=== PATIENT | female | born 1965 | race Caucasian/White ===

== ENCOUNTER 2021-12-27 15:50 | Inpatient (IN) | payer BC, MEDICARE ==
[~2021-12-27] VITALS: Ht 165.1 cm; Wt 68.5 kg
[2021-12-27] MEDS ORDERED: SODIUM CHLORIDE 0.9% 500 ML IVB ONE (16:00)
[2021-12-27 17:04] LABS: Basophils # (auto) 0 10 ^3/uL (0-0.2); Basophils % (auto) 0.4 % (0.0-2.0); Eosinophils # (auto) 0 10 ^3/uL (0-0.8); Eosinophils % (auto) 0.1 % (0.0-7.0); Hematocrit 43.6 % (36.0-46.0); Lymphocytes # (auto) 0.4 10 ^3/uL (0.4-5.4); Lymphocytes % (auto) 3.3 % (10.0-50.0); Mean Corpuscular Hemoglobin 31.6 pg (28.0-32.0); Mean Corpuscular Hgb Conc. 34.3 g/dL (32.0-36.0); Monocytes # (auto) 0.7 10 ^3/uL (0-1.3); Monocytes % (auto) 6.3 % (0.0-12.0); Neutrophils # (auto) 10.1 10 ^3/uL (1.6-8.6); Neutrophils % (auto) 89.9 % (37.0-80.0); Nucleated Red Blood Cells % 0.3 %; Red Blood Cells 4.74 10^6/uL (4.0-5.20); Red Cell Distribution Width 14.6 % (11.8-14.3); White Blood Cell 11.2 10^3/uL (4.4-10.8)
[2021-12-27 17:22] LABS: Albumin 3.9 g/dL (3.4-5.0); Anion Gap 8 (5-15); Blood Alcohol < 3.0 mg/dL (0-5); Blood Urea Nitrogen 22 mg/dL (7-18); Calcium 9.6 mg/dL (8.5-10.1); Carbon Dioxide 24 mmol/L (21-32); Chloride 109 mmol/L (98-107); Glucose 127 mg/dL (74-106); Magnesium 1.9 mg/dL (1.6-2.6); Potassium 3.2 mmol/L (3.5-5.1); Salicylate 2.6 mg/dL (2.8-20.0); Sodium 141 mmol/L (136-145)
[2021-12-27 17:24] LABS: Lactic Acid w/Reflex 3.3 mmol/L (0.4-2.0)
[2021-12-27 17:27] LABS: Alanine Aminotransferase 19 U/L (13-56); Alkaline Phosphatase 89 U/L (45-117); Aspartate Aminotransferase 17 U/L (15-37); Bilirubin, Total 0.9 mg/dL (0.2-1.0); GFR African American 69 mL/min; GFR Non-African American 57 mL/min; Total Protein 7.4 g/dL (6.4-8.2)
[2021-12-27 17:29] LABS: Acetaminophen < 10.0 ug/mL (10-30)
[2021-12-27] MEDS ORDERED: hydrALAZINE HCL 20 MG/ML VL IV ONE (18:45)
[2021-12-27] MEDS ORDERED: AZITHROMYCIN 500MG/ 250ML 250 ML IV ONE (19:30)
[2021-12-27] MEDS ORDERED: cefTRIAXone 1GM/50ML D5W 50 ML IV ONE (19:30)
[2021-12-27] MEDS ORDERED: SODIUM CHLORIDE 0.9% 2,000 ML IV ONE (19:30)
[2021-12-27] MEDS ORDERED: ONDANSETRON HCL 4 MG/2 ML VIAL IV ONE (20:30)
[2021-12-27] MEDS ORDERED: MORPHINE SULFATE INJ 2 MG/ml SYRG IV ONE (20:30)
[2021-12-27 21:15] LABS: Urine Bacteria NONE SEEN /hpf (None Seen); Urine Blood Negative /uL (Negative); Urine Mucus FEW (None Seen); Urine Specific Gravity 1.021 (1.001-1.035); Urine WBC 2 /hpf (0 - 5)
[2021-12-27] MEDS ORDERED: NITROGLYCERIN 0.4 MG SL TAB SL PRN (21:15)
[2021-12-27] MEDS ORDERED: ONDANSETRON HCL 4 MG/2 ML VIAL IV PRN (21:15)
[2021-12-27] MEDS: SOD CHL 0.9%/ KCL 20MEQ 1,000 ML IV SCH (21:15)
[2021-12-27] MEDS ORDERED: MORPHINE SULFATE INJ 2 MG/ml SYRG IV PRN (21:15)
[2021-12-27 21:32] LABS: Alcohol, Urine < 3.0 mg/dL (0-10); Amphetamine Screen, Urine NEGATIVE (NEGATIVE); Barbiturate Scree,Urine NEGATIVE (NEGATIVE); Benzodiazephine Screen, Urine NEGATIVE (NEGATIVE); Cannabinoid Screen, Urine POSITIVE (NEGATIVE); Cocaine Screen, Urine NEGATIVE (NEGATIVE); Opiate Scree,Urine NEGATIVE (NEGATIVE); Phencyclidine Screen, Urine NEGATIVE (NEGATIVE)
[2021-12-27] MEDS ORDERED: dilTIAZem 25 MG/5 ML VIAL IV ONE (21:45)
[2021-12-27] MEDS: ACETAMINOPHEN 325 MG TAB PO PRN (23:42)
[2021-12-28] MEDS ORDERED: dilTIAZem 25 MG/5 ML VIAL IV ONE (01:15)
[2021-12-28 05:22] LABS: Basophils # (auto) 0.1 10 ^3/uL (0-0.2); Basophils % (auto) 0.4 % (0.0-2.0); Eosinophils # (auto) 0 10 ^3/uL (0-0.8); Hematocrit 40.9 % (36.0-46.0); Hemoglobin 14.4 g/dL (12.2-16.2); Lymphocytes # (auto) 0.7 10 ^3/uL (0.4-5.4); Mean Corpuscular Hemoglobin 32.2 pg (28.0-32.0); Mean Corpuscular Hgb Conc. 35.3 g/dL (32.0-36.0); Mean Corpuscular Volume 91.3 fL (80.0-100.0); Monocytes # (auto) 0.9 10 ^3/uL (0-1.3); Monocytes % (auto) 4.7 % (0.0-12.0); Neutrophils # (auto) 16.5 10 ^3/uL (1.6-8.6); Neutrophils % (auto) 90.9 % (37.0-80.0); Nucleated Red Blood Cells % 0.1 %; Red Blood Cells 4.48 10^6/uL (4.0-5.20); Red Cell Distribution Width 15.1 % (11.8-14.3); White Blood Cell 18.1 10^3/uL (4.4-10.8)
[2021-12-28] MEDS ORDERED: LABETALOL HCL 5 MG/ML 4ML SYRINGE IV ONE (05:30)
[2021-12-28 05:37] LABS: Potassium 3.6 mmol/L (3.5-5.1)
[2021-12-28 05:51] LABS: Albumin 3.8 g/dL (3.4-5.0); Bilirubin, Total 0.9 mg/dL (0.2-1.0); Calcium 9.5 mg/dL (8.5-10.1); Total Protein 7.2 g/dL (6.4-8.2)
[2021-12-28] MEDS ORDERED: VANCOMYCIN PER PHARMACY 0 MG IV SCH (06:00)
[2021-12-28] MEDS ORDERED: VANCOMYCIN 1GM/250ML 250 ML IV ONE (06:15)
[2021-12-28] MEDS ORDERED: cefTRIAXone 1GM/50ML D5W 50 ML IV SCH (09:00)
[2021-12-28] MEDS ORDERED: hydrALAZINE HCL 20 MG/ML VL IV ONE (09:15)
[2021-12-28] MEDS: ENOXAPARIN SOD 40 MG/0.4 ML SYRINGE SC SCH ×2 (10:00→10:55)
[2021-12-28] MEDS: PANTOPRAZOLE 40 MG TAB PO SCH (10:55)
[2021-12-28] MEDS: SOD CHL 0.9%/ KCL 20MEQ 1,000 ML IV SCH (10:55)
[2021-12-28] MEDS ORDERED: HYDROcodone-ACET 5/325MG TAB PO ONE (11:45)
[2021-12-28] MEDS ORDERED: HCTZ 25 MG TAB PO ONE (11:45)
[2021-12-28] MEDS ORDERED: cefTRIAXone 1GM/50ML D5W 50 ML IV ONE (15:00)
[2021-12-28] MEDS ORDERED: NIFEdipine ER 30 MG TAB PO ONE (15:00)
[2021-12-28] MEDS ORDERED: METOPROLOL TARTRATE 1MG/1ML-5ML VIAL IV PRN (15:00)
[2021-12-28] MEDS ORDERED: LABETALOL HCL 5 MG/ML 4ML SYRINGE IV PRN (15:15)
[2021-12-28] MEDS: ACETAMINOPHEN 325 MG TAB PO PRN (17:52)
[2021-12-28] MEDS: VANCOMYCIN 1GM/250ML 250 ML IV SCH (20:09)
[2021-12-28] MEDS: SODIUM CHLORIDE 0.9% 1,000 ML IV SCH (23:25)
[2021-12-28] MEDS: AZITHROMYCIN 500MG/ 250ML 250 ML IV SCH (23:26)
[2021-12-28] MEDS: METOPROLOL TARTRATE 50 MG TAB PO SCH (23:26)
[2021-12-28] MEDS: METOCLOPRAMIDE HCL 10 MG TAB PO SCH (23:27)
[2021-12-28] MEDS: HYDROcodone-ACET 5/325MG TAB PO PRN (23:28)
[2021-12-28] MEDS: DexAMETHasone INJECTION 10 MG in D5W 5% 50 ML IV SCH (23:30)
[2021-12-29] MEDS: SODIUM CHLORIDE 0.9% 1,000 ML IV SCH ×2 (03:15→13:45)
[2021-12-29 04:34] LABS: Basophils # (auto) 0.1 10 ^3/uL (0-0.2); Basophils % (auto) 0.4 % (0.0-2.0); Eosinophils # (auto) 0 10 ^3/uL (0-0.8); Eosinophils % (auto) 0.1 % (0.0-7.0); Hematocrit 41.9 % (36.0-46.0); Hemoglobin 14.1 g/dL (12.2-16.2); Lymphocytes % (auto) 6.6 % (10.0-50.0); Mean Corpuscular Hemoglobin 30.8 pg (28.0-32.0); Mean Corpuscular Hgb Conc. 33.5 g/dL (32.0-36.0); Mean Corpuscular Volume 91.8 fL (80.0-100.0); Monocytes # (auto) 0.7 10 ^3/uL (0-1.3); Neutrophils # (auto) 13.2 10 ^3/uL (1.6-8.6); Neutrophils % (auto) 87.9 % (37.0-80.0); Red Blood Cells 4.57 10^6/uL (4.0-5.20); Red Cell Distribution Width 15.1 % (11.8-14.3)
[2021-12-29 04:53] LABS: Calcium 9.6 mg/dL (8.5-10.1); Magnesium 1.8 mg/dL (1.6-2.6)
[2021-12-29 04:59] LABS: Albumin 3.4 g/dL (3.4-5.0); BUN/Creatinine Ratio 14.9; Bilirubin, Total 0.5 mg/dL (0.2-1.0); Total Protein 7.4 g/dL (6.4-8.2)
[2021-12-29 05:00] VITALS: BP 147/95
[2021-12-29] MEDS: METOCLOPRAMIDE HCL 10 MG TAB PO SCH ×3 (06:25→21:23)
[2021-12-29] MEDS: ACETAMINOPHEN 325 MG TAB PO PRN ×2 (06:26→14:36)
[2021-12-29 08:00] VITALS: BP 144/90
[2021-12-29] MEDS: HYDROcodone-ACET 5/325MG TAB PO PRN ×3 (08:11→21:22)
[2021-12-29 09:00] VITALS: BP 144/90
[2021-12-29] MEDS: VANCOMYCIN 1GM/250ML 250 ML IV SCH (09:20)
[2021-12-29] MEDS: cefTRIAXone 1GM/50ML D5W 50 ML IV SCH (09:20)
[2021-12-29] MEDS: METOPROLOL TARTRATE 50 MG TAB PO SCH ×2 (09:21→21:23)
[2021-12-29] MEDS: HCTZ 25 MG TAB PO SCH (09:21)
[2021-12-29] MEDS: PANTOPRAZOLE 40 MG TAB PO SCH (09:21)
[2021-12-29] MEDS: NIFEdipine ER 30 MG TAB PO SCH (09:22)
[2021-12-29] MEDS: ENOXAPARIN SOD 40 MG/0.4 ML SYRINGE SC SCH (09:22)
[2021-12-29] MEDS: DexAMETHasone INJECTION 10 MG in D5W 5% 50 ML IV SCH (09:25)
[2021-12-29 13:00] VITALS: BP 143/91
[2021-12-29] MEDS ORDERED: THIAMINE HCL 100 MG TAB PO ONE (13:45)
[2021-12-29] MEDS ORDERED: MAGNESIUM SULFATE 1GM/100ML 100 ML IV ONE (13:45)
[2021-12-29] MEDS ORDERED: POTASSIUM EFFERVESENT TAB 25 MEQ PO ONE (13:45)
[2021-12-29] MEDS ORDERED: OXY5T GT (16:26)
[2021-12-29 17:00] VITALS: BP 137/67
[2021-12-29] MEDS: AZITHROMYCIN 500MG/ 250ML 250 ML IV SCH (21:23)
[2021-12-29 22:00] VITALS: BP 130/84
[2021-12-30] VITALS (7 sets, daily range): BP systolic 131–155; BP diastolic 46–96
[2021-12-30] MEDS: SODIUM CHLORIDE 0.9% 1,000 ML IV SCH ×3 (00:21→14:15)
[2021-12-30 05:53] LABS: Basophils # (auto) 0 10 ^3/uL (0-0.2); Basophils % (auto) 0.1 % (0.0-2.0); Eosinophils # (auto) 0 10 ^3/uL (0-0.8); Hematocrit 41.2 % (36.0-46.0); Hemoglobin 13.8 g/dL (12.2-16.2); Lymphocytes # (auto) 0.8 10 ^3/uL (0.4-5.4); Lymphocytes % (auto) 9.9 % (10.0-50.0); Mean Corpuscular Hemoglobin 31.1 pg (28.0-32.0); Mean Corpuscular Hgb Conc. 33.6 g/dL (32.0-36.0); Mean Corpuscular Volume 92.8 fL (80.0-100.0); Monocytes # (auto) 0.5 10 ^3/uL (0-1.3); Monocytes % (auto) 6.2 % (0.0-12.0); Neutrophils # (auto) 7.1 10 ^3/uL (1.6-8.6); Neutrophils % (auto) 83.8 % (37.0-80.0); Nucleated Red Blood Cells % 0.2 %; Red Blood Cells 4.44 10^6/uL (4.0-5.20); Red Cell Distribution Width 15.3 % (11.8-14.3); White Blood Cell 8.5 10^3/uL (4.4-10.8)
[2021-12-30] MEDS: METOCLOPRAMIDE HCL 10 MG TAB PO SCH ×2 (06:00→09:20)
[2021-12-30 06:02] LABS: INR 0.96 (0.9-1.15)
[2021-12-30 06:12] LABS: BUN/Creatinine Ratio 24.4; Calcium 9.9 mg/dL (8.5-10.1); Magnesium 2.5 mg/dL (1.6-2.6); Potassium 3.6 mmol/L (3.5-5.1)
[2021-12-30] MEDS ORDERED: VANCOMYCIN 1GM/250ML 250 ML IV SCH (08:00)
[2021-12-30] MEDS: FOLIC ACID 1 MG TAB PO SCH (09:18)
[2021-12-30] MEDS: THIAMINE HCL 100 MG TAB PO SCH (09:18)
[2021-12-30] MEDS: PANTOPRAZOLE 40 MG TAB PO SCH (09:18)
[2021-12-30] MEDS: NIFEdipine ER 30 MG TAB PO SCH (09:19)
[2021-12-30] MEDS: HCTZ 25 MG TAB PO SCH (09:19)
[2021-12-30] MEDS: MULTIPLE VITAMINS W/ MINERALS TAB PO SCH (09:19)
[2021-12-30] MEDS: METOPROLOL TARTRATE 50 MG TAB PO SCH ×2 (09:20→22:20)
[2021-12-30] MEDS: DexAMETHasone INJECTION 10 MG in D5W 5% 50 ML IV SCH (09:21)
[2021-12-30] MEDS: cefTRIAXone 1GM/50ML D5W 50 ML IV SCH (09:21)
[2021-12-30] MEDS: ENOXAPARIN SOD 40 MG/0.4 ML SYRINGE SC SCH (09:22)
[2021-12-30] MEDS: POTASSIUM CHL 20 Meq TABLET PO SCH (09:25)
[2021-12-30] MEDS: HYDROcodone-ACET 5/325MG TAB PO PRN ×2 (09:30→17:31)
[2021-12-30] MEDS: AZITHROMYCIN 500MG/ 250ML 250 ML IV SCH (22:20)
[2021-12-31] MEDS: HYDROcodone-ACET 5/325MG TAB PO PRN ×2 (01:52→11:10)
[2021-12-31 05:00] VITALS: BP 146/71
[2021-12-31 06:18] LABS: BUN/Creatinine Ratio 27.5; Calcium 10.1 mg/dL (8.5-10.1); Potassium 3.9 mmol/L (3.5-5.1)
[2021-12-31 06:41] LABS: Basophils # (auto) 0 10 ^3/uL (0-0.2); Basophils % (auto) 0.5 % (0.0-2.0); Eosinophils # (auto) 0 10 ^3/uL (0-0.8); Hemoglobin 13.5 g/dL (12.2-16.2); Lymphocytes # (auto) 1.4 10 ^3/uL (0.4-5.4); Lymphocytes % (auto) 23.1 % (10.0-50.0); Mean Corpuscular Hemoglobin 31.3 pg (28.0-32.0); Mean Corpuscular Hgb Conc. 33.8 g/dL (32.0-36.0); Mean Corpuscular Volume 92.8 fL (80.0-100.0); Monocytes # (auto) 0.3 10 ^3/uL (0-1.3); Monocytes % (auto) 5.7 % (0.0-12.0); Neutrophils # (auto) 4.3 10 ^3/uL (1.6-8.6); Neutrophils % (auto) 70.7 % (37.0-80.0); Nucleated Red Blood Cells % 0.1 %; Red Blood Cells 4.31 10^6/uL (4.0-5.20); Red Cell Distribution Width 15.2 % (11.8-14.3)
[2021-12-31] MEDS: SODIUM CHLORIDE 0.9% 1,000 ML IV SCH (07:13)
[2021-12-31 09:02] VITALS: BP 133/74
[2021-12-31] MEDS: cefTRIAXone 1GM/50ML D5W 50 ML IV SCH (09:18)
[2021-12-31] MEDS: FOLIC ACID 1 MG TAB PO SCH (09:18)
[2021-12-31] MEDS: MULTIPLE VITAMINS W/ MINERALS TAB PO SCH (09:18)
[2021-12-31] MEDS: THIAMINE HCL 100 MG TAB PO SCH (09:18)
[2021-12-31] MEDS: PANTOPRAZOLE 40 MG TAB PO SCH (09:19)
[2021-12-31] MEDS: POTASSIUM CHL 20 Meq TABLET PO SCH (09:19)
[2021-12-31] MEDS: HCTZ 25 MG TAB PO SCH (09:19)
[2021-12-31] MEDS: NIFEdipine ER 30 MG TAB PO SCH (09:20)
[2021-12-31] MEDS: METOPROLOL TARTRATE 50 MG TAB PO SCH (09:22)
[2021-12-31] MEDS: ENOXAPARIN SOD 40 MG/0.4 ML SYRINGE SC SCH (09:22)
[2021-12-31] MEDS ORDERED: LEVO750T8 PO (12:07)
[2021-12-31] MEDS ORDERED: HYDR25TA5 PO (12:07)
[2021-12-31] MEDS ORDERED: METO1TAB77 PO (12:07)
[2021-12-31] MEDS ORDERED: NIFE1TAB31 PO (12:07)
[2021-12-31] MEDS ORDERED: POTA1TAB61 PO (12:07)
[2021-12-31 13:00] VITALS: BP 140/98
[2021-12-31 14:13] VITALS: BP 133/74
== END 2021-12-31 16:36 | disposition home or self-care (01) | DRG 871 ==
LOC: ER 15:50 → EDBD 15:50 → TELE 21:09 → TELE-WESTW 12-28 22:35
PROVIDERS: ADMIT Nurse Practitioner; ATTEND Internal Medicine
DX: A41.9 Sepsis, unspecified organism (principal); N17.0 Acute kidney failure with tubular necrosis; J69.0 Pneumonitis due to inhalation of food and vomit; G93.41 Metabolic encephalopathy; N18.6 End stage renal disease; I12.0 Hypertensive chronic kidney disease with stage 5 chronic kidney disease or end stage renal disease; E87.6 Hypokalemia; Z20.822 Contact with and (suspected) exposure to COVID-19; R00.0 Tachycardia, unspecified; R51.9 Headache, unspecified; F12.90 Cannabis use, unspecified, uncomplicated; Z82.49 Family history of ischemic heart disease and other diseases of the circulatory system; Z83.3 Family history of diabetes mellitus
CPT/HCPCS: 36415; 36600; 70450; 70551; 71045; 71250; 74176; 80048; 80053; 80061; 80202; 80307; 80320; 80329; 81001; 82140; 82805; 83036; 83605; 83735; 84443; 84484; 85025; 85610; 85652; 86141; 87040; 87804; 93005; 93306; 93886; 95819; 96361; 96365; 96368; 96375; G0378; J0696; J1100; J3490; J7060